=== PATIENT | male | born 1955 | race Caucasian/White ===

== ENCOUNTER 2018-06-11 13:33 | Observation (INO) | payer OTHER ==
[~2018-06-11] VITALS: Ht 177.8 cm; Wt 99.0 kg
[~2018-06-11 13:33] MED LIST: ACIPHEX20 MG PO; ANTIVERT25 MG OR; ATENOLOL50 MG PO; CARAFATE OR; CYCLOBENZAPR10 MG PO; EQ ASPIRIN81 M1 PO; LIPITOR10 MG PO; LORTAB 7.5 PO; LORTAB5 PO; LOSARTAN POT50 MG PO; MEDDOSEPAK OR; METOCLOPRAM10 MG OR; PANTOPRAZOLE SO40 MG PO; PREVACID30 M2 PO; REGLAN10 MG OR; TRAMADOL HCL50 MG PO; ZOFRAN ODT4 MG OR; [UNRECOGNIZED DRUG - REMARK]
--- NOTE | 2018-06-11 13:36 | NUR ---
PT REFUSED WHEELCHAIR AND AMBULATED TO ROOM WITH A STEADY GAIT.
[2018-06-11] MEDS ORDERED: PRAVASTATIN20 MG PO (13:52)
[2018-06-11] MEDS ORDERED: MULTI VIT PO (13:52)
[2018-06-11] MEDS ORDERED: CALCI17 PO (13:54)
[2018-06-11] MEDS ORDERED: MAGNESIUM 400 M1 TAB PO (13:54)
[2018-06-11 14:12] LABS: HEMATOCRIT 39.8 % (39.0-50.0); HEMOGLOBIN 13.2 g/dl (14.0-18.0); IMMATURE GRANULOCYTES 0.2 % (0.0-5.0); MEAN CELL VOLUME 85.6 fL CALC (80.0-100.0); MEAN CORPUSCULAR HGB 28.4 pG CALC (26.0-32.0); MEAN CORPUSCULAR HGB CONC 33.2 g/L CALC (32.0-36.0); NEUT# 2.76 thou/uL (1.82-7.42); RED BLOOD COUNT 4.65 mill/uL (4.70-6.10); RED CELL DISTRI WIDTH 15.5 % (11.5-15.5)
--- NOTE | 2018-06-11 14:21 | NUR ---
PT DENIES CP OR SOB AT THIS TIME. VSS. SKIN PWD. ALL MONITORS ASSESSED. ADVISED OF POC AND PT AGREEABLE
[2018-06-11 14:50] LABS: ANION GAP 15 (6-22 (CALC)); BUN 15 mg/dL (8-23); BUN/CREATININE RATIO 20 (12-20 (CALC)); CARBON DIOXIDE 27 mmol/l (22-30); CHLORIDE 103 mmol/l (95-108); CREATININE 0.8 mg/dL (0.7-1.3); GFR > 60 ML/MIN (>=60 (CALC)); GFR FOR AFR.AMER. > 60 ML/MIN (>=60 (CALC)); POTASSIUM 4.6 mmol/l (3.5-5.1); SODIUM 139 mmol/l (137-146)
--- NOTE | 2018-06-11 15:19 | NUR ---
RESTING IN NO ACUTE DISTRESS, AWAITING MD EVALUATION AND DISPOSITION.
--- NOTE | 2018-06-11 16:30 | NUR ---
PT DENIES CP OR SOB AT THIS TIME. VSS. AWAITING DISPOSITION TO FLOOR
--- NOTE | 2018-06-11 16:40 | NUR ---
PT TRANSPORTED TO [place] VIA ON TELEMETRY. PT IN STABLE CONDITION.
--- NOTE | 2018-06-11 16:52 | NUR ---
PT ARRIVED TO FLOOR VIA WC ACCOMPANIED BY SAMAN CARLOS. PT AMBULATED TO BED W/ STEADY GAIT. DENIES CP. NO DIZZINESS. TELE UNIT READING SB @ 51 PER ENEDELIA COLLINS IN ED. PT ALERT AND ORIENTED. ORIENTED TO ROOM AND EQUIPMENT. CALL LIGHT REVIEWED AND IN REACH. PLAN OF CARE DISCUSSED. REPORTING OF CONCERNS ENCOURAGED. ASSESSMENT AND HISTORY COMPLETED AT THIS TIME. PT STATES UNDERSTANDING OF INFORMATION.
[2018-06-11 16:55] VITALS: BP 128/83
[2018-06-11 19:27] VITALS: BP 104/59
--- NOTE | 2018-06-11 20:00 | NUR ---
PT RESTING IN BED, NO SIGNS OF DISTRESS NOTED, RESP EVEN AND UNLABORED. ALERT AND ORIENTED X3, DISCUSSED POC, PT IN AGREEMENT. ASSESSMENT COMPLETED. PT VOICES NO NEEDS OR COMPLAINTS AT THIS TIME, CALL LIGHT IN REACH,CONTINUE TO MONITOR.
--- NOTE | 2018-06-12 | NUR ---
PT RESTING IN BED WATCHING TV, NO SIGNS OF DISTRESS NOTED, RESP EVEN AND UNLABORED. CALL LIGHT IN REACH,CONTINUE TO MONITOR.
[2018-06-12 00:07] VITALS: BP 113/71
[2018-06-12 04:49] VITALS: BP 119/59
[2018-06-12 06:16] LABS: HEMATOCRIT 38.8 % (39.0-50.0); HEMOGLOBIN 12.7 g/dl (14.0-18.0); IMMATURE GRANULOCYTES 0.2 % (0.0-5.0); MEAN CELL VOLUME 85.8 fL CALC (80.0-100.0); MEAN CORPUSCULAR HGB 28.1 pG CALC (26.0-32.0); MEAN CORPUSCULAR HGB CONC 32.7 g/L CALC (32.0-36.0); NEUT# 1.97 thou/uL (1.82-7.42); RED BLOOD COUNT 4.52 mill/uL (4.70-6.10); RED CELL DISTRI WIDTH 15.4 % (11.5-15.5)
[2018-06-12 06:34] LABS: ALBUMIN 3.8 g/dL (3.2-5.0); ALKALINE PHOSPHATASE 82 u/l (38-126); AMYLASE 39 u/l (30-110); ANION GAP 12 (6-22 (CALC)); BUN 14 mg/dL (8-23); BUN/CREATININE RATIO 18 (12-20 (CALC)); CARBON DIOXIDE 29 mmol/l (22-30); CHLORIDE 105 mmol/l (95-108); CREATININE 0.8 mg/dL (0.7-1.3); GFR > 60 ML/MIN (>=60 (CALC)); GFR FOR AFR.AMER. > 60 ML/MIN (>=60 (CALC)); LIPASE 70 u/l (23-300); MAGNESIUM 1.9 mg/dL (1.6-2.3); POTASSIUM 4.9 mmol/l (3.5-5.1); SGOT/AST 42 u/l (19-48); SODIUM 140 mmol/l (137-146); TOTAL PROTEIN 6.4 g/dL (6.3-8.2)
[2018-06-12 06:41] LABS: BILIRUBIN, TOTAL 0.6 mg/dL (0.0-1.4)
--- NOTE | 2018-06-12 07:00 | NUR ---
PT REPORT RECIEVED FROM SOFY.MORTGAGE MANAGER. PT WATCHING TELEVISION. NO S/S OF DISTRESS. CALL LIGHT IN REACH. WILL CONTINUE TO MONITOR.
[2018-06-12 07:58] VITALS: BP 129/77
--- NOTE | 2018-06-12 07:58 | NUR ---
PT A/O X3. SPEECH IS CLEAR. RESP EVEN AND UNLABORED. LUNG SOUNDS CLEAR. TELE IN PLACE. BOWEL SOUNDS ACTIVE X4. STRONG RADIAL AND PEDAL PULSES. #20 LAC SL. FLUSHED AND PATENT. SITE APPEARS HEALTHY. SKIN INTACT. PT DENIES ANY PAIN OR NEEDS. POC DISCUSSED. SAFETY PRECAUTIONS IN PLACE. CALL LIGHT IN REACH. WILL CONTINUE TO MONITOR.
[2018-06-12 11:29] VITALS: BP 115/69
[2018-06-12] MEDS ORDERED: CARVEDILOL3.125 MG PO (12:37)
--- NOTE | 2018-06-12 13:15 | NUR ---
Discharge instructions given. Patient verbalizes understanding of same. Discharged in stable condition via Ambulatory to Home with family. All belongings sent with pt.
== END 2018-06-12 13:13 | disposition home or self-care (01) | DRG 310 ==
LOC: ED 13:33 → ED-I 15:14 → ED 15:54 → MS2 15:55
PROVIDERS: Family Medicine; ADMIT Internal Medicine Nephrology; ATTEND Internal Medicine Nephrology
DX: I47.1 Supraventricular tachycardia (principal); E78.5 Hyperlipidemia, unspecified; K21.9 Gastro-esophageal reflux disease without esophagitis
CPT/HCPCS: G0378; J1650

== ENCOUNTER 2022-06-28 16:15 | Observation (INO) | payer OTHER ==
[~2022-06-28] VITALS: Ht 177.8 cm; Wt 87.0 kg
[2022-06-28] VITALS (12 sets, daily range): BP systolic 121–144; BP diastolic 63–76
[~2022-06-28 16:15] MED LIST changes: +CALCI17 PO; +CARVEDILOL3.125 MG PO; +MAGNESIUM 400 M1 TAB PO; +MULTI VIT PO; +PRAVASTATIN20 MG PO
--- NOTE | 2022-06-28 16:15 | NUR ---
PT AMBULATED TO ROOM 9 FOR TRIAGE WITH A STEADY GAIT C/O CHEST PAIN THAT STARTED MANAGER RESEARCH HERE.
[2022-06-28 16:50] LABS: BASO% 0.3 % (0-3); EOS% 0.1 % (0-8); HEMATOCRIT 42.1 % (39.0-50.0); HEMOGLOBIN 14.5 g/dl (14.0-18.0); IMMATURE GRANULOCYTES 0.3 % (0.0-5.0); LYMPH% 16.2 % (15-41); MEAN CELL VOLUME 86.6 fL CALC (80.0-100.0); MEAN CORPUSCULAR HGB 29.8 pG CALC (26.0-32.0); MEAN CORPUSCULAR HGB CONC 34.4 g/dL CAL (32.0-36.0); MONO% 4.9 % (2-13); NEUT# 5.92 thou/uL (1.82-7.42); NEUT% 78.2 % (42-76); RED BLOOD COUNT 4.86 mill/uL (4.70-6.10); RED CELL DISTRI WIDTH 12.5 % (11.5-15.5)
[2022-06-28 16:57] LABS: ALBUMIN 4.8 g/dL (3.2-5.0); ALKALINE PHOSPHATASE 81 u/l (38-126); ANION GAP 14 (6-22 (CALC)); BILIRUBIN, TOTAL 1.3 mg/dL (0.2-1.3); BUN 13 mg/dL (8-23); BUN/CREATININE RATIO 16 (12-20 (CALC)); CARBON DIOXIDE 27 mmol/l (22-30); CHLORIDE 99 mmol/l (95-108); CREATININE 0.8 mg/dL (0.7-1.3); GFR FOR AFR.AMER. > 60 ML/MIN (>=60 (CALC)); GFR OTHER RACES > 60 ML/MIN (>=60 (CALC)); POTASSIUM 3.1 mmol/l (3.5-5.1); SGOT/AST 46 u/l (19-48); SODIUM 137 mmol/l (137-146); TOTAL PROTEIN 8.1 g/dL (6.3-8.2)
--- NOTE | 2022-06-28 17:00 | NUR ---
Reassessment of patient completed. No distress noted.
[2022-06-28] MEDS ORDERED: PRAVASTATIN80 MG PO (17:11)
[2022-06-28] MEDS ORDERED: DONEPEZIL10 MG PO (17:12)
[2022-06-28] MEDS ORDERED: DILTIAZEM HCL120 M3 (17:12)
[2022-06-28] MEDS ORDERED: DOXAZOSIN MESYLA4 M1 PO (17:13)
[2022-06-28] MEDS ORDERED: POT CHLORIDE10 ME5 PO (17:14)
[2022-06-28] MEDS ORDERED: CHLORTHALIDONE25 MG PO (17:14)
[2022-06-28] MEDS ORDERED: ISOSORB MONO30 MG PO (17:14)
[2022-06-28] MEDS ORDERED: NAPROXEN375 MG PO (17:15)
[2022-06-28] MEDS ORDERED: ASPIRINCHW 81MG PO (17:15)
--- NOTE | 2022-06-28 18:33 | NUR ---
REPORT GIVEN TO SAMAN PENAACCOUNT TECHNICIAN
--- NOTE | 2022-06-28 19:30 | NUR ---
RECIEVED REPORT FROM DAYSHIFT NURSE. PT IS ALERT IN BED SITTING UP. INITIAL ASSESSMENT DONE. PT IS ORIENTED TO ROOM AND TO USE OF CALL LIGHT. PT HAS NO PAIN AT THIS TIME. CALL LIGHT WITHIN REACH AND SAFETY PRECAUTIONS IN PLACE.
--- NOTE | 2022-06-29 | NUR ---
PT IS SLEEPING IN BED. NO COMPLAINTS OF PAIN AT THIS MOMENT. CALLIGHT WITHIN REACH AND SAFETY PRECAUTIONS IN PLACE.
[2022-06-29 03:40] VITALS: BP 106/56
[2022-06-29 04:00] VITALS: BP 106/56
--- NOTE | 2022-06-29 05:36 | NUR ---
PT IS IN BED SLEEPING. PT SHOWS NO SIGHS OF PAIN OR DISCOMFORT. ALL LIGHT WITHIN REACH AND SAFETY PRECAUTIONS IN PLACE.
[2022-06-29 05:38] LABS: BASO% 0.3 % (0-3); EOS% 0.6 % (0-8); HEMATOCRIT 41.2 % (39.0-50.0); HEMOGLOBIN 14.4 g/dl (14.0-18.0); IMMATURE GRANULOCYTES 0.1 % (0.0-5.0); LYMPH% 22.8 % (15-41); MEAN CELL VOLUME 86.2 fL CALC (80.0-100.0); MEAN CORPUSCULAR HGB 30.1 pG CALC (26.0-32.0); MONO% 7.5 % (2-13); NEUT# 6.15 thou/uL (1.82-7.42); NEUT% 68.7 % (42-76); RED BLOOD COUNT 4.78 mill/uL (4.70-6.10); RED CELL DISTRI WIDTH 12.6 % (11.5-15.5)
[2022-06-29 06:19] LABS: ALBUMIN 4.3 g/dL (3.2-5.0); ALKALINE PHOSPHATASE 82 u/l (38-126); ANION GAP 14 (6-22 (CALC)); BILIRUBIN, TOTAL 1.1 mg/dL (0.2-1.3); BUN 16 mg/dL (8-23); BUN/CREATININE RATIO 18 (12-20 (CALC)); CARBON DIOXIDE 24 mmol/l (22-30); CHLORIDE 101 mmol/l (95-108); CREATININE 0.9 mg/dL (0.7-1.3); GFR FOR AFR.AMER. > 60 ML/MIN (>=60 (CALC)); GFR OTHER RACES > 60 ML/MIN (>=60 (CALC)); SGOT/AST 43 u/l (19-48); SODIUM 136 mmol/l (137-146); TOTAL PROTEIN 7.3 g/dL (6.3-8.2)
[2022-06-29 07:21] VITALS: BP 127/67
--- NOTE | 2022-06-29 07:30 | NUR ---
RECIEVED BEDSIDE REPORT , NO S/S OF DISTRESS, NO COMPLAINTS OF PAIN,PATIENT SAFETY MEASURES IN PLACE.
[2022-06-29 11:05] VITALS: BP 100/57
[2022-06-29] MEDS ORDERED: ONDANSETRON4 MG PO (12:27)
--- NOTE | 2022-06-29 14:01 | NUR ---
PATIENT HAD NO COMPLAINTS OF PAIN, STATED HE WAS NAUSEATED, NO S/S OF DISTRESS, IV REMOVED, TELEMTRY TAKEN OFF, PAITENT WAITING FOR SISTER FOR RIDE.
--- NOTE | 2022-06-29 14:37 | NUR ---
PATIENT LEFT THE FLOOR VIA W/C WITH STAFF IN STABLE CONDTION.
== END 2022-06-29 14:31 | disposition home or self-care (01) | DRG 313 ==
LOC: ED 16:15 → ED-I 17:38 → ED 17:50 → MS2 17:51
PROVIDERS: Family Medicine; ADMIT Internal Medicine; ATTEND Internal Medicine
DX: R07.9 Chest pain, unspecified (principal); E87.6 Hypokalemia; I10 Essential (primary) hypertension; F03.90 Unspecified dementia, unspecified severity, without behavioral disturbance, psychotic disturbance, mood disturbance, and anxiety; K21.9 Gastro-esophageal reflux disease without esophagitis; E78.5 Hyperlipidemia, unspecified; E66.9 Obesity, unspecified; Z87.442 Personal history of urinary calculi; Z87.891 Personal history of nicotine dependence

== ENCOUNTER 2023-03-01 19:01 | Emergency (ER) | payer OTHER, MEDICARE ==
[~2023-03-01] VITALS: Ht 177.8 cm; Wt 86.0 kg
[~2023-03-01 19:01] MED LIST changes: +ASPIRINCHW 81MG PO; +CHLORTHALIDONE25 MG PO; +DILTIAZEM HCL120 M3 PO; +DONEPEZIL10 MG PO; +DOXAZOSIN MESYLA4 M1 PO; +ISOSORB MONO30 MG PO; +NAPROXEN375 MG PO; +ONDANSETRON4 MG PO; +POT CHLORIDE10 ME5 PO; +PRAVASTATIN80 MG PO
[2023-03-01 20:47] LABS: BASO% 0.6 % (0-3); EOS% 0.4 % (0-8); HEMATOCRIT 39.4 % (39.0-50.0); HEMOGLOBIN 13.7 g/dl (14.0-18.0); IMMATURE GRANULOCYTES 0.1 % (0.0-5.0); LYMPH% 21.4 % (15-41); MEAN CELL VOLUME 86.6 fL CALC (80.0-100.0); MEAN CORPUSCULAR HGB 30.1 pG CALC (26.0-32.0); MEAN CORPUSCULAR HGB CONC 34.8 g/dL CAL (32.0-36.0); MONO% 7.1 % (2-13); NEUT# 4.73 thou/uL (1.82-7.42); NEUT% 70.4 % (42-76); RED BLOOD COUNT 4.55 mill/uL (4.70-6.10)
[2023-03-01 21:17] LABS: ALBUMIN 4.1 g/dL (3.2-5.0); ALKALINE PHOSPHATASE 99 u/l (38-126); ANION GAP 10 (6-22 (CALC)); BILIRUBIN, TOTAL 0.7 mg/dL (0.2-1.3); BUN 18 mg/dL (8-23); BUN/CREATININE RATIO 23 (12-20 (CALC)); CARBON DIOXIDE 30 mmol/l (22-30); CHLORIDE 97 mmol/l (95-108); CREATININE 0.8 mg/dL (0.7-1.3); GFR FOR AFR.AMER. > 60 ML/MIN (>=60 (CALC)); GFR OTHER RACES > 60 ML/MIN (>=60 (CALC)); SGOT/AST 50 u/l (19-48); SODIUM 134 mmol/l (137-146)
[2023-03-01 23:21] LABS: URINE BILIRUBIN - DIPSTICK Negative (NEGATIVE); URINE BLOOD DIPSTICK Negative (NEGATIVE); URINE GLUCOSE - DIPSTICK Negative (NEGATIVE); URINE KETONE Negative (NEGATIVE); URINE LEUK ESTERASE Negative (NEGATIVE); URINE NITRITE - DIPSTICK Negative (Negative); URINE PH 8.5 (4.5-8.0); URINE PROTEIN - DIPSTICK Negative (NEG-TRACE)
[2023-03-01 23:29] LABS: URINE COLOR Yellow
[2023-03-01] MEDS ORDERED: MEMANTINE HYDRO10 MG PO (23:33)
[2023-03-01] MEDS ORDERED: CHLORTHALIDONE25 MG PO (23:34)
[2023-03-01] MEDS ORDERED: GALANTAMINE PO (23:35)
[2023-03-01] MEDS ORDERED: B-2100 MG PO (23:36)
[2023-03-01] MEDS ORDERED: NAPROXEN375 MG PO (23:40)
[2023-03-01] MEDS ORDERED: MECLIZINE25 MG PO (23:40)
[2023-03-02 00:06] VITALS: BP 119/69
== END 2023-03-02 00:06 | disposition home or self-care (01) | DRG 149 ==
LOC: ED 19:01
PROVIDERS: Nurse Practitioner Family
DX: R42 Dizziness and giddiness (principal); R51.9 Headache, unspecified; Z20.822 Contact with and (suspected) exposure to COVID-19